=== PATIENT | male | born 1960 | race African-American/Black ===

== ENCOUNTER 2018-11-14 12:26 | Emergency (ER) | payer BC, OTHER ==
[~2018-11-14] VITALS: Ht 180.3 cm; Wt 83.9 kg
[2018-11-14] MEDS ORDERED: NORVASC5 MG PO (12:28)
[2018-11-14 13:15] LABS: ABSOLUTE NEUTROPHILS 5.1 thou/uL (1.4-8.2); BASOPHILS 0.6 % (0.0-2.0); EOSINOPHILS 0.3 % (0.0-3.0); HEMATOCRIT 41.6 % (42.0-52.0); HEMOGLOBIN 13.9 gm/dL (14.0-18.0); LYMPHOCYTES 22.4 % (24.0-44.0); MCH 30.4 pg (26.0-34.0); MCHC 33.5 g/dL (28.0-37.0); MCV 90.9 fL (80.0-100.0); MONOCYTES 5.6 % (1.0-8.0); PLATELET COUNT 225 thou/uL (150-400); POLYS 71.1 % (36.0-66.0); RBC 4.57 mil/uL (4.50-6.00); RDW 13.8 % (10.5-14.5); WBC 7.2 thou/uL (4.0-11.0)
[2018-11-14 13:20] LABS: CALCIUM 9.6 mg/dL (8.5-10.1); CREATININE 1.4 mg/dL (0.7-1.3); POTASSIUM 4.4 mmol/L (3.5-5.1)
[2018-11-14] MEDS ORDERED: ANTIVERT25 MG PO (15:40)
[2018-11-14] MEDS ORDERED: DIAZEPAM 2MG TAB2 MG PO (15:40)
[2018-11-14 15:59] VITALS: BP 160/98
--- NOTE | 2018-11-15 08:10 | EKG ---
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: [facility] : 1960 Requested By: Ricci Bean Order Number: [id number] MD: Adrian Parks Measurements Intervals [place] Rate: 78 P: 48 [place]: 148 QRS: -13 QRSD: 82 T: 29 QT: 367 QTc: 419 Interpretive Statements Sinus rhythm Abnormal R-wave progression, early transition No previous ECG available for comparison Electronically Signed On 11-15-2018 8:09:54 CDT by Adrian Parks [email or web address] ��������������������������������������������� <ELECTRONICALLY SIGNED> ���������������������������������������� By: Adrian Parks MD, [facility] ��������������������������������������������� 11/15/18 0809 1311 1311 Adrian Parks MD, FACC /EPI
== END 2018-11-14 16:21 | disposition home or self-care (01) ==
LOC: ER 12:26
PROVIDERS: Emergency Medicine
DX: R42 Dizziness and giddiness (principal); F17.210 Nicotine dependence, cigarettes, uncomplicated; I10 Essential (primary) hypertension

== ENCOUNTER 2019-11-06 12:44 | Emergency (ER) | payer BC, OTHER ==
[~2019-11-06] VITALS: Ht 180.3 cm; Wt 81.7 kg
[~2019-11-06 12:44] MED LIST: ANTIVERT25 MG PO; DIAZEPAM 2MG TAB2 MG PO; NORVASC5 MG PO
--- NOTE | 2019-11-06 13:01 | EKG ---
[facility] [place] [address] ELECTROCARDIOGRAM REPORT Name: GISELE RAYMOND Room #: PRE M.R.#: [id number] Admission: Attend Phys: Discharge: Date of : 58 Report #: [id number] THIS REPORT FOR: cc: Edis White MD, Harry MD Lundgren,Adrian Guerrero MD 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 11/06/19 1259 1249 1249 Adrian Parks MD, FACC /EPI
[2019-11-06 13:08] LABS: ABSOLUTE NEUTROPHILS 3.2 thou/uL (1.4-8.2); BASOPHILS 1.3 % (0.0-2.0); EOSINOPHILS 0.6 % (0.0-3.0); HEMATOCRIT 44.1 % (42.0-52.0); HEMOGLOBIN 14.8 gm/dL (14.0-18.0); LYMPHOCYTES 32.2 % (24.0-44.0); MCHC 33.5 g/dL (28.0-37.0); MCV 92.4 fL (80.0-100.0); PLATELET COUNT 266 thou/uL (150-400); POLYS 57.9 % (36.0-66.0); RBC 4.77 mil/uL (4.50-6.00); RDW 14.5 % (10.5-14.5); WBC 5.5 thou/uL (4.0-11.0)
[2019-11-06] MEDS ORDERED: CARBIDOPA-LEVO1 EAC5 PO ×2 (13:16→13:17)
[2019-11-06 13:17] LABS: ANION GAP 9 mmol/L (7-16); BUN 9 mg/dL (7-18); CHLORIDE 104 mmol/L (98-107); CO2 26 mmol/L (21-32); CREATININE 1.2 mg/dL (0.7-1.3); GLUCOSE 117 mg/dL (74-106); POTASSIUM 3.9 mmol/L (3.5-5.1); SODIUM 139 mmol/L (136-145)
[2019-11-06 13:26] LABS: ALBUMIN 3.9 g/dL (3.4-5.0); MAGNESIUM 1.9 mg/dL (1.8-2.4); SGOT 14 U/L (15-37); SGPT 7 U/L (30-65); TOTAL BILIRUBIN 0.7 mg/dL (<0.1-1.0); TROPONIN-I <0.06 ng/mL (<0.06)
[2019-11-06 13:44] LABS: URINE BILIRUBIN NEGATIVE (Negative); URINE BLOOD NEGATIVE (Negative); URINE CLARITY CLEAR; URINE COLOR YELLOW; URINE GLUCOSE-RANDOM* NEGATIVE (Negative); URINE KETONES NEGATIVE (Negative); URINE LEUKOCYTES-REFLEX NEGATIVE (Negative); URINE NITRITE-REFLEX NEGATIVE (Negative); URINE PROTEIN (DIPSTICK) NEGATIVE (Negative); URINE SPECIFIC GRAVITY 1.025 (1.005-1.035); URINE UROBILINOGEN 0.2 E.U./dl (0.2-1.0)
[2019-11-06 14:16] VITALS: BP 128/90
== END 2019-11-06 14:16 | disposition home or self-care (01) ==
LOC: ER 12:44
PROVIDERS: Nurse Practitioner Family
DX: R00.2 Palpitations (principal); I10 Essential (primary) hypertension; F17.210 Nicotine dependence, cigarettes, uncomplicated